=== PATIENT | female | born 1995 | race Caucasian/White ===

== ENCOUNTER 2023-07-10 10:21 | Emergency (ER) | payer OTHER ==
[~2023-07-10] VITALS: Ht 162.6 cm; Wt 65.1 kg
[2023-07-10 10:26] VITALS: BP 104/80; PULSE 116; RESP 20; TEMP 98; O2SAT 99
[2023-07-10 11:00] LABS: FLU A ANTIGEN negative (NEGATIVE); FLU B ANTIGEN NEGATIVE (NEGATIVE)
[2023-07-10] MEDS ORDERED: BENZ200C4 PO (12:44)
[2023-07-10] MEDS ORDERED: MUC600 PO (12:44)
[2023-07-10] MEDS ORDERED: SUD30 PO (12:44)
[2023-07-10] MEDS ORDERED: FLONAS NS (12:44)
== END 2023-07-10 12:53 | disposition home or self-care (01) ==
LOC: MED 10:21
DX: J06.9 Acute upper respiratory infection, unspecified (principal); Z20.822 Contact with and (suspected) exposure to COVID-19; Z98.890 Other specified postprocedural states; Z79.899 Other long term (current) drug therapy
CPT/HCPCS: 71046; 81025; 99284

== ENCOUNTER 2023-12-21 07:35 | Emergency (ER) | payer MEDICAID, OTHER ==
[~2023-12-21] VITALS: Ht 167.6 cm; Wt 66.7 kg
[~2023-12-21 07:35] MED LIST: BENZ200C4 PO; FLONAS NS; MUC600 PO; SUD30 PO
[2023-12-21 07:46] VITALS: BP 116/70; PULSE 98; RESP 17; TEMP 97.7; O2SAT 100
[2023-12-21 10:39] LABS: FLU B ANTIGEN negative (NEGATIVE)
[2023-12-21 10:42] LABS: FLU A ANTIGEN POSITIVE (NEGATIVE)
[2023-12-21] MEDS ORDERED: BENZ-300 PO (10:48)
[2023-12-21] MEDS ORDERED: IBUP-2213 PO (10:48)
[2023-12-21 11:36] VITALS: BP 125/71; PULSE 90; RESP 17; TEMP 98.1; O2SAT 100
== END 2023-12-21 10:51 | disposition home or self-care (01) ==
LOC: MED 07:35
DX: U07.1 COVID-19 (principal); J10.1 Influenza due to other identified influenza virus with other respiratory manifestations; Z79.1 Long term (current) use of non-steroidal anti-inflammatories (NSAID); Z79.899 Other long term (current) drug therapy
CPT/HCPCS: 99283